=== PATIENT | female | born 1985 ===

== ENCOUNTER 2016-10-01 12:24 | Emergency (ER) | payer OTHER ==
[2016-10-01 13:42] VITALS: BP 143/114
[2016-10-01] MEDS ORDERED: Ibuprofen TAB* 600 MG PO ONE (14:17)
[2016-10-01] MEDS ORDERED: Tetan/Diph/Pertus SYR(Tdap)* 0.5 ML SYR(BOOSTRIX) use SYR IM ONE (14:17)
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
== END 2016-10-01 15:05 | disposition home or self-care (01) ==
LOC: UCEAST 12:24
DX: S61.431A Puncture wound without foreign body of right hand, initial encounter (principal); W45.0XXA Nail entering through skin, initial encounter; W22.8XXA Striking against or struck by other objects, initial encounter; Y93.9 Activity, unspecified; Y92.9 Unspecified place or not applicable; Z23 Encounter for immunization; I10 Essential (primary) hypertension; F17.210 Nicotine dependence, cigarettes, uncomplicated
CPT/HCPCS: 90471; 90715; 99203; A9270-GY; G0463

== ENCOUNTER 2018-06-30 10:54 | Emergency (ER) | payer OTHER ==
[2018-06-30 11:03] VITALS: BP 140/93
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
[2018-06-30] MEDS ORDERED: Albuterol/Ipratropium NEB.SOL* Albuterol 2.5 MG/Ipratropium 0.5 MG 3 ML INH ONE (11:55)
[2018-06-30 12:47] LABS: Influenza A Molecular POSITIVE (Negative)
== END 2018-06-30 12:59 | disposition home or self-care (01) ==
LOC: UCEAST 10:54
DX: J11.1 Influenza due to unidentified influenza virus with other respiratory manifestations (principal); R05 Cough; R10.9 Unspecified abdominal pain; F17.210 Nicotine dependence, cigarettes, uncomplicated
CPT/HCPCS: 71046; 99212; A9270-GY; G0463